=== PATIENT | female | born 1950 | race Caucasian/White ===

== ENCOUNTER 2019-10-12 08:54 | Outpatient (CLI) | payer MEDICARE, OTHER, SELFPAY ==
--- NOTE | ~2019-10-12 | CT_ITS ---
EXAMINATION: CT abdomen pelvis w con DATE: 10/12/2019 09:42 INDICATION: Right lower quadrant abdominal pain TECHNIQUE: Computed tomography (CT) of the abdomen and pelvis was performed with 100 cc Omnipaque 350 intravenous contrast. The dose-length product was 1589.71 mGy-cm. Automated exposure control and ite rative reconstruction technique were employed. COMPARISON: CT dated 03/25/2016 FINDINGS: Lung bases are unremarkable. No significant pleural or pericardial effusion. Heart size is normal. Fatty infiltration of the liver. Status post cholecystectomy. Calcified granulomas of the spleen. The pancreas, adrenal glands and kidneys are unremarkable. There is mild osteoarthritis of the hips. No acute osseous abnormality. Mild lumbar spondylosis with grade 1 spondylolisthesis at L4-5. Nonobstructive bowel gas pattern. No significant vascular abnormality. No lymphadenopathy. The append ix is likely surgically absent. No evidence for appendicitis or diverticulitis. IMPRESSION: 1. No acute abdominal abnormality. Reviewed, dictated and finalized at location A. ING TUBE SELECTOR
[2019-10-12 09:31] LABS: Blood Urea Nitrogen 11 mg/dL (8-26); Estimated Glomerular Filt Rate > 60
== END 2019-10-12 08:55 | disposition home or self-care (01) ==
LOC: ANHIMG 09:02
PROVIDERS: PCP Family Medicine; Visit Provider Family Medicine
DX: R10.31 Right lower quadrant pain (principal)
CPT/HCPCS: 74177; Q9967

== ENCOUNTER 2019-11-06 09:00 | Outpatient (CLI) | payer MEDICARE, OTHER, SELFPAY ==
--- NOTE | 2019-11-06 | EST_ITS ---
Patient Info Name: Roxanne Rice Age: 68 years : 1950 Gender: Female Ht: 64 in Wt: 300 lbs BSA: 2.56 m2 Exam Date: 11/06/2019 10:18 AM Exam Location: [facility] Stress Patient Status: Outpatient Admit Date: 11/06/2019 Staff Ordering Physician: Emerald Amaya MD Attending Provider: Emerald Amaya MD Exercise Technologist: Errol Gaytan RDCS, RT Exam Type: CA stress carlo w NM Study Info A regadenoson stress test was performed. Summary 1. Please correlate with nuclear medicine images, reported separately. 2. No abnormal ST-T wave changes with lexiscan. Protocol: Lexiscan Stress ECG Details Stage: REST Duration (min): 1 min : 1 sec HR (bpm): 59 SBP (mmHg): 141 DBP (mmHg): 65 Stage: REST Duration (min): 13 min : 11 sec HR (bpm): 62 SBP (mmHg): 141 DBP (mmHg): 65 Stage: STAGE 1 Duration (min): 0 min : 59 sec HR (bpm): 93 SBP (mmHg): 141 DBP (mmHg): 65 Stage: RECOVERY Duration (min): 1 min : 0 sec HR (bpm): 85 SBP (mmHg): 169 DBP (mmHg): 62 Stage: RECOVERY Duration (min): 2 min : 0 sec HR (bpm): 82 SBP (mmHg): 169 DBP (mmHg): 62 Stage: RECOVERY Duration (min): 3 min : 0 sec HR (bpm): 75 SBP (mmHg): 169 DBP (mmHg): 62 Stage: RECOVERY Duration (min): 4 min : 0 sec HR (bpm): 72 SBP (mmHg): 170 DBP (mmHg): 62 Stage: RECOVERY Duration (min): 5 min : 0 sec HR (bpm): 68 SBP (mmHg): 176 DBP (mmHg): 66 Stage: RECOVERY Duration (min): 5 min : 3 sec HR (bpm): 68 SBP (mmHg): 176 DBP (mmHg): 66 Rest HR: 62 bpm Peak HR: 93 bpm Rest Sys BP: 141 mmHg Peak Sys BP: 176 mmHg Max Pred HR: 154 bpm % Max Pred HR: 60 % Target HR: 131 bpm Max RPP: 16,368 bpm*mmHg Target HR Summary: Hemodynamic response to exercise was normal BP Response: Normal blood pressure response Termination Reason: Completed protocol Cardiac Symptoms: None Total Time: 1 min : 0 sec Rest Terrazas BP: 65 mmHg Peak Terrazas BP: 66 mmHg Total Dose: 0.4 mg Resting ECG Normal sinus rhythm. low voltage. first degree AV block. Stress ECG No abnormal ST/T wave changes with exercise. Arrhythmias None. Report Signatures
--- NOTE | ~2019-11-06 | NM_ITS ---
EXAMINATION: NM carlo stress w perfusion EXAM DATE: 11/06/2019 13:47 INDICATION: Unilateral primary osteoarthritis. Ischemic chest pain. TECHNIQUE: Rest images were obtained following intravenous administration of 9.1 mCi Tc99m tetrofosmi n (Myoview). The patient was infused intravenously with Lexiscan (regadenoson). Then, 27 mCi Tc99m te trofosmin (Myoview) was administered intravenously, and stress images were obtained. Data was reconst ructed into short axis and horizontal and vertical long axis SPECT images. Gated SPECT images were al so obtained. There is no prior study for comparison. FINDINGS: There is moderate sized, moderate severity anterolateral wall defect on the stress images w ith only small equivocal defect on the rest. Reversibility affecting approximately 39 % of the anteri or wall and 12% of the lateral wall. End diastolic volume: 124 mL. End-systolic volume: 27 mL. Left ventricular ejection fraction: 78%. IMPRESSION: 1. Moderate-sized moderate intensity anterolateral region of ischemia with equivocal tiny infarct wit hin. 2. Left ventricular ejection fraction measuring 78%. Reviewed, dictated and finalized at location A. IMPRESSION: 1. Moderate-sized moderate intensity anterolateral region of ischemia with equi vocal tiny infarct within. 2. Left ventricular ejection fraction measuring 78%.
== END 2019-11-06 09:01 | disposition home or self-care (01) ==
PROVIDERS: PCP Family Medicine; Visit Provider Family Medicine
DX: M17.11 Unilateral primary osteoarthritis, right knee (principal); R06.09 Other forms of dyspnea; R07.9 Chest pain, unspecified
CPT/HCPCS: 78452; 93017; A9502; J2785

== ENCOUNTER 2019-11-29 02:15 | Day surgery (SDC) | payer MEDICARE, OTHER, SELFPAY ==
[2019-11-29] VITALS (10 sets, daily range): BP systolic 108–146; BP diastolic 60–89; PULSE 46–61; RESP 13–18; TEMP 36.6; O2SAT 94–99; BMI 52.5
[2019-11-29 07:33] LABS: Basophils Percent Auto 0.6 % (0.2-1.2); Eosinophils Absolute Auto 0.1 K/mm3 (0-0.3); Eosinophils Percent Auto 1.7 % (0-4.4); Hematocrit 46.9 % (37.0-47.0); Immature Granulocyte Absolute 0.01 K/mm3 (0.00-0.031); Immature Granulocyte Percent A 0.2 % (0-0.5); Lymphocytes Absolute Auto 1.44 K/mm3 (0.9-3.2); Lymphocytes Percent Auto 30.2 % (18.3-44.2); Mean Corpuscular Volume 90.5 fl (80-100); Mean Platelet Volume 10.6 fl (7.4-10.4); Monocytes Absolute Auto 0.4 K/mm3 (0.1-0.6); Monocytes Percent Auto 9.2 % (2.6-8.5); Neutrophils Absolute Auto 2.8 K/mm3 (1.3-6.7); Neutrophils Percent Auto 58.1 % (45.5-73.1); Platelet Count Result 205 k/mm3 (150-375); Red Blood Count 5.18 M/mm3 (4.2-5.4); Red Cell Distribution Width 13.2 % (11.5-14.5); White Blood Count 4.8 K/mm3 (4.5-10.0)
--- NOTE | 2019-11-29 07:37 | SUR.PREOP ---
0700-pt presents to the [facility] for an LHC. No distress noted. AOx4. Questions answered and verbalized understanding. Consent signed. PIV started. Strong bilateral pedal pulses noted. Will continue to monitor.
[2019-11-29 07:43] LABS: Blood Urea Nitrogen 14 mg/dL (7-17); Calcium 9.2 mg/dL (8.4-10.2); Carbon Dioxide 31 mmol/L (22-30); Chloride 103 mmol/L (98-107); Estimated CRCL calculation 109 ml/min; Estimated Glomerular Filt Rate > 60; Glucose 136 mg/dL (65-105); Potassium 4.2 mmol/L (3.4-5.0); Sodium 141 mmol/L (137-145)
--- NOTE | 2019-11-29 08:22 | WPDMODSED ---
Moderate Sedation Note-Pt Data Patient Data Diagnosis: 68-year-old female with history of exertional dyspnea recently had a nuclear stress test to investigate these symptoms which apparently demonstrated evidence of anterior ischemia. There is no previous documented history of cardiac disease. The patient is morbidly obese with BMI of 52. Present Complaint: Exertional dyspnea Procedure to be performed/Plan: left heart catheterization Allergies Allergy/AdvReac Type Severity Reaction Status Date / Time Penicillins Allergy Unknown Skin Verified 11/28/19 15:30 Reaction Home Medications Medication Instructions Recorded Confirmed Type aspirin 325 mg PO DAILY 11/28/19 11/28/19 History clopidogrel 75 mg PO DAILY 11/28/19 11/28/19 History metoprolol tartrate 50 mg PO DAILY 11/28/19 11/28/19 History mirabegron [Myrbetriq] 50 mg PO DAILY 11/28/19 11/28/19 History nm-qh-VP-vit A-ouapy-lsy-coQ10 1 cap PO DAILY 11/28/19 11/28/19 History [Daily Multivitamin] olmesartan-hydrochlorothiazide 0.5 tablet PO DAILY 11/28/19 11/28/19 History rosuvastatin 10 mg PO DAILY 11/28/19 11/28/19 History vitamin E 400 unit PO DAILY 11/28/19 11/28/19 History Current Medications: Active Medications Sodium Chloride (Normal Saline Iv) 500 mls @ 100 mls/hr IV CONT .Q5H MARION Sedation/Anesthesia: No previous sedation/anesthesia problems (including family history). [facility] Social History Social History Smoking status: Never smoker Alcohol intake: never Gender identity (if verbalized by the patient): Female Mod Sed Physical Exam Physical Exam Pre Procedural Exam: Normal: Neck, Throat, Airway, Lungs, Heart Rate, Heart Rhythm, Neuro Exam and Extremities and Variation: Appearance ( obese white female no apparent distress) and Heart Size ( PMI not palpable) Hours since solid foods: 12 Hours since liquid intake: 12 Internal Medicine - PN: Obj Da Vital Signs Vital Signs: Vital Signs - 24 hr 11/29/19 07:20 Temperature 36.6 C Pulse Rate 61 Respiratory Rate 14 Blood Pressure 143/74 H Pulse Oximetry 96 Meds/Results Medications: Active Medications Generic Name Dose Route Start Last Admin Trade Name Freq PRN Reason Stop Dose Admin Sodium Chloride 500 mls @ 100 mls/hr 11/29/19 06:00 Normal Saline Iv IV CONT .Q5H MARION Labs CBC & Chem 7: 11/29/19 07:20 11/29/19 07:20 Labs: Laboratory Results - last 24 hr 11/29/19 11/29/19 07:20 07:20 WBC 4.8 RBC 5.18 Hgb 15.0 Hct 46.9 MCV 90.5 MCH 29.0 MCHC 32.0 RDW 13.2 Plt Count 205 MPV 10.6 H Immature Gran % (Auto) 0.2 Neut % (Auto) 58.1 Lymph % (Auto) 30.2 Meagher % (Auto) 9.2 H Eos % (Auto) 1.7 Baso % (Auto) 0.6 Lymph # (Auto) 1.44 Meagher # (Auto) 0.4 Eos # (Auto) 0.1 Baso # (Auto) 0.0 Abs Immat Gran (auto) 0.01 Absolute Neuts (auto) 2.8 Absolute Nucleated RBC 0.0 Nucleated RBC % 0.0 Sodium 141 Potassium 4.2 Chloride 103 Carbon Dioxide 31 H BUN 14 Creatinine 0.60 L Estim Creat Clear Calc 109 Estimated GFR > 60 Glucose 136 H Calcium 9.2 ASA Classification/Sedation ASA Classification/Sedation ASA Class: II Emergent: No Risks: Risks, benefits and alternatives explained and patient/family accepted plan for sedation. Patient re-evaluated immediately prior to sedation.
--- NOTE | 2019-11-29 09:06 | WPDCARDPROC ---
Cardiac Cath Procedure Note Date of procedure:: 11/29/19 Performing physician:: Leopoldo Mei MD Indication:: exertional dyspnea/abnormal nuclear stress test Brief clinical history:: this is a 68-year-old woman who has no previous history of coronary artery disease who has been experiencing more debilitating exertional shortness of breath. A nuclear stress test has been interpreted by Radiology as anterior wall ischemia prompting the recommendation to perform an angiogram. Procedure Procedure performed:: Left heart catheterization with left ventriculography and coronary angiography Angio-Seal to right femoral artery Sedation/Medication given:: fentanyl 50 mg Versed 2 mg case start time 8:40 a.m. case end time 9:04 a.m. sedation provided by Linn Rodriguez RN, trained observer Access site:: right femoral artery Estimated blood loss:: 30-40 cc Procedure note:: patient was brought to the cardiac catheterization lab where the right femoral triangle was prepared and draped in the usual fashion. Anesthesia was provided with 1% lidocaine infiltrated locally. Using the modified Seldinger technique a 5 Mauritian sheath placed into the femoral artery. The patient is morbidly obese in accessing the femoral artery was somewhat difficult. Following access left heart catheterization was carried out uneventfully. I 5 Mauritian angled pigtail catheter was used to measure left-sided hemodynamics and injected LV g in the are AO projection. Following this standard FL4 and JR4 catheters were used to inject the left and right coronaries in multiple projections. Following review the cineangiograms of femoral angiogram was done through the sheath and Angio-Seal device was deployed at the site of the arterial puncture with a good hemostatic result. Despite access challenges there was no palpable evidence of a groin hematoma at the conclusion of the procedure. Findings:: Hemodynamics: Central aortic pressure 135/56 left ventricle 135/70 end-diastolic 16 there is no gradient upon pullback across the aortic valve. The left ventricle is normal in size all segments contract properly the global ejection fraction is visually estimated to be 55% the left main coronary artery is short but is widely patent the LAD is a moderate caliber vessel extending down to the apex the LAD and its branches are smooth and angiographically normal. The circumflex is a moderate caliber artery giving rise to the marginal branches the circumflex system is smooth and angiographically normal the right coronary artery is medium in caliber dominant to the posterior circulation the RCA is smooth and angiographically normal Conclusion:: right coronary dominant circulation with no evidence of coronary artery disease preserved left ventricular systolic function successful Angio-Seal at right femoral artery puncture site symptoms of dyspnea obviously noncardiac and stress test is obviously a false positive based on these findings Leopoldo Mei MD FACC
--- NOTE | 2019-11-29 11:08 | PM.DS ---
DS: Summary Hospital Course Reason for hospitalization: Elective left heart catheterization Hospital Course: This is a 68-year-old patient with no previous documented history of coronary artery disease. She has been experiencing progressively more debilitating exertional shortness of breath. Because of this a nuclear stress test was performed as an outpatient which was interpreted by Radiology as evidence of anterior wall ischemia. For this reason she was seen in the office and angiography was planned for today. The patient underwent left heart catheterization via the right femoral artery approach. She had an uneventful procedure because of morbid obesity arterial access was a bit challenging. At the end of the procedure she did have an angiogram of the femoral artery and Angio-Seal device was deployed with a good hemostatic result. The left heart catheterization findings were essentially unremarkable she has right coronary dominant circulation and no evidence of CAD. Her LV function is nicely preserved. The stress test is clearly a false-positive result because of obesity. Time spent discussing smoking cessation with patient: 3 to 10 minutes Status at Discharge Functional status at discharge: independent ambulation Time Spent with Patient Time attestation: Total time spent providing and/or coordinating discharge services: Time spent: Less than 30 minutes Exam Const: General: comfortable and no acute distress HENMT: Mouth: Yes moist mucous membranes Eyes: Sclera: sclerae normal Pupils: Equal, round and reactive pupils present Neck: Neck: supple and no JVD Resp: Effort & Inspection: normal respiratory effort Auscultation: clear to auscultation bilaterally Cardio: Rate: regular rate Rhythm: regular rhythm Other: PMI not palpable because of size. no discernible murmur or gallop GI: GI Palp: Yes Soft to palpation Auscultation: normal bowel sounds Other: Morbidly obese otherwise benign Extrem: General: normal to inspection DS: Data Data Completed and Pending Labs on day of discharge: Labs from last 24 hours 11/29/19 11/29/19 07:20 07:20 WBC 4.8 RBC 5.18 Hgb 15.0 Hct 46.9 MCV 90.5 MCH 29.0 MCHC 32.0 RDW 13.2 Plt Count 205 MPV 10.6 H Immature Gran % (Auto) 0.2 Neut % (Auto) 58.1 Lymph % (Auto) 30.2 Griggs % (Auto) 9.2 H Eos % (Auto) 1.7 Baso % (Auto) 0.6 Lymph # (Auto) 1.44 Griggs # (Auto) 0.4 Eos # (Auto) 0.1 Baso # (Auto) 0.0 Abs Immat Gran (auto) 0.01 Absolute Neuts (auto) 2.8 Absolute Nucleated RBC 0.0 Nucleated RBC % 0.0 Sodium 141 Potassium 4.2 Chloride 103 Carbon Dioxide 31 H BUN 14 Creatinine 0.60 L Estim Creat Clear Calc 109 Estimated GFR > 60 Glucose 136 H Calcium 9.2 Discharge Plan Discharge Patient Disposition: Home, Self-Care Follow-up/Referrals: Leopoldo Mei MD [Physician] - Emerald Amaya MD [Primary Care Provider] - Discharge Medications: Continued aspirin 325 mg Tablet 325 mg PO DAILY RF: 0 metoprolol tartrate 50 mg tablet 50 mg PO DAILY RF: 0 vitamin E 400 unit Capsule 400 unit PO DAILY RF: 0 olmesartan-hydrochlorothiazide 20-12.5 mg tablet 0.5 tablet PO DAILY RF: 0 rosuvastatin 10 mg tablet 10 mg PO DAILY RF: 0 Myrbetriq 50 mg tablet extended release 24 hr 50 mg PO DAILY RF: 0 Daily Multivitamin 200-100-500 mcg Capsule 1 cap PO DAILY RF: 0 Discontinued clopidogrel 75 mg tablet 75 mg PO DAILY RF: 0 Primary Care Provider: Emerald Amaya Attending physician on admission: Leopoldo Mei
--- NOTE | 2019-11-29 17:08 | SUR.PHASEII ---
1430-pt given d/c orders and instructions. Questions answered and verbalized understanding. AOx4. PIV removed intact. Groin soft and non-tender, no evidence of bleeding or hematoma noted. Strong right pedal pulse noted. Taken via wheelchair to waiting vehicle. No distress noted or verbalized at time of departure.
== END 2019-11-29 14:30 | disposition home or self-care (01) ==
PROVIDERS: PCP Family Medicine; Visit Provider Specialist
PROC: 4A023N7 Measurement of Cardiac Sampling and Pressure, Left Heart, Percutaneous Approach (ICD-10-PCS; CPT 93452; principal; 2019-11-29 08:30)
DX: R94.39 Abnormal result of other cardiovascular function study (principal); R06.09 Other forms of dyspnea; Z79.82 Long term (current) use of aspirin; Z79.02 Long term (current) use of antithrombotics/antiplatelets; E66.01 Morbid (severe) obesity due to excess calories; Z68.43 Body mass index [BMI] 50.0-59.9, adult
CPT/HCPCS: 36415; 80048; 85025; 93458; C1760; C1887; C1894; G0269; J1644; J2250; J3010; J7040

== ENCOUNTER 2019-12-17 15:39 | Outpatient (CLI) | payer MEDICARE, OTHER, SELFPAY ==
--- NOTE | ~2019-12-17 | MM_ITS ---
EXAMINATION: MM screening [facility] BI w katerin HISTORY: Screening mammogram TECHNIQUE: Craniocaudal and mediolateral oblique 3-D tomosynthesis images were obtained and synthetic 2-D images were generated. CAD analysis was submitted and interpreted. COMPARISON: Comparison to multiple prior studies sequentially, with oldest reviewed study dated 07/22. BREAST PARENCHYMAL COMPOSITION: There are scattered areas of fibroglandular density. FINDINGS: There is no evidence of suspicious mass, calcification, or architectural distortion to sugg est malignancy in either breast. There has been no suspicious interval change. IMPRESSION: 1. No mammographic evidence of malignancy. 2. Recommend routine screening mammography in one year. BI-RADS Category 1: Negative Reviewed, dictated and finalized at location A.
== END 2019-12-17 15:40 | disposition home or self-care (01) ==
LOC: ANHIMG 15:42
PROVIDERS: PCP Family Medicine; Visit Provider Family Medicine
DX: Z12.31 Encounter for screening mammogram for malignant neoplasm of breast (principal)
CPT/HCPCS: 77063; 77067

== ENCOUNTER 2019-12-19 10:44 | Outpatient (CLI) | payer MEDICARE, OTHER, SELFPAY ==
[2019-12-19 11:09] LABS: Basophils Percent Auto 0.4 % (0.2-1.2); Eosinophils Absolute Auto 0.1 K/mm3 (0-0.3); Eosinophils Percent Auto 1.6 % (0-4.4); Hematocrit 43.8 % (37.0-47.0); Hemoglobin 14.6 g/dL (12.0-15.0); Lymphocytes Percent Auto 31.7 % (18.3-44.2); Mean Corpuscular HGB Conc 33.3 g/dl (32-36); Mean Corpuscular Hemoglobin 29.7 pg (26-34); Mean Corpuscular Volume 89.2 fl (80-100); Mean Platelet Volume 10.5 fl (7.4-10.4); Monocytes Absolute Auto 0.5 K/mm3 (0.1-0.6); Monocytes Percent Auto 9.1 % (2.6-8.5); Neutrophils Absolute Auto 2.9 K/mm3 (1.3-6.7); Neutrophils Percent Auto 57.2 % (45.5-73.1); Platelet Count Result 208 k/mm3 (150-375); Red Blood Count 4.91 M/mm3 (4.2-5.4); Red Cell Distribution Width 13.3 % (11.5-14.5)
[2019-12-19 11:22] LABS: Alanine Aminotransferase 38 U/L (4-35); Albumin Level 4.3 g/dL (3.5-5.1); Alkaline Phosphatase 71 U/L (38-126); Aspartate Amino Transferase 30 U/L (14-36); Bilirubin,Total 0.3 mg/dL (0.2-1.3); Blood Urea Nitrogen 12 mg/dL (7-17); Calcium 9.3 mg/dL (8.4-10.2); Carbon Dioxide 33 mmol/L (22-30); Chloride 101 mmol/L (98-107); Cholesterol 165 mg/dL (0-200); Estimated Glomerular Filt Rate > 60; Glucose 148 mg/dL (65-105); HDL Direct 35 mg/dL; Potassium 4.3 mmol/L (3.4-5.0); Sodium 139 mmol/L (137-145); Triglycerides 241 mg/dL (<150)
[2019-12-19 11:33] LABS: LDL Cholesterol Direct 95 mg/dL
[2019-12-19 11:53] LABS: Hemoglobin A1C 6.9 % (<5.7)
[2019-12-19 11:54] LABS: Free T4 Free Thyroxine 1.17 ng/mL (0.78-2.19)
== END 2019-12-19 10:45 | disposition home or self-care (01) ==
LOC: ANHLAB 10:47
PROVIDERS: PCP Family Medicine; Visit Provider Family Medicine
DX: R06.02 Shortness of breath (principal); R73.03 Prediabetes; I10 Essential (primary) hypertension; G47.33 Obstructive sleep apnea (adult) (pediatric); Z99.89 Dependence on other enabling machines and devices
CPT/HCPCS: 36415; 80053; 80061; 83036; 84439; 84443; 85025

== ENCOUNTER 2019-12-25 14:40 | Outpatient (CLI) | payer MEDICARE, OTHER, SELFPAY ==
--- NOTE | 2019-12-25 21:22 | WPDPFTINT ---
PFT Interpretation PFT Interpretation: DOS: 12/25/2019 REQUESTING: Dr Amaya REASON FOR TESTING: Dyspnea PULMONARY FUNCTION TESTS Spirometry: FEV1 78%, mildly decreased. FVC 74%, mildly decreased. FEV1% is normal. HKU35-97% mildly decreased. No bronchodilator was given. Lung volumes: TLC is 84%, normal. Slow vital capacity is 80%, normal, and higher than forced vital capacity indicating dynamic airflow obstruction. RV/TLC is increased suggestive of air trapping. Normal airway resistance 91%. Diffusion: DLCO 69%, mildly decreased. Flow volume loop: Normal. IMPRESSION: Mild obstructive ventilatory impairment with mild diffusion impairment. Clinical correlation is advised. Radha Seo MD
== END 2019-12-25 14:41 | disposition home or self-care (01) ==
PROVIDERS: PCP Family Medicine; Visit Provider Family Medicine
DX: R06.02 Shortness of breath (principal); R94.2 Abnormal results of pulmonary function studies
CPT/HCPCS: 94375; 94726; 94729

== ENCOUNTER 2020-09-09 07:06 | Outpatient (CLI) | payer MEDICARE, OTHER, SELFPAY ==
--- NOTE | ~2020-09-09 | XR_ITS ---
EXAMINATION: XR foot LT min 3V DATE: 09/09/2020 08:44 INDICATION: Left foot injury. TECHNIQUE: 4 views of left foot were obtained. COMPARISON: Left foot radiographs 09/18/2004 FINDINGS: There is a bunionette deformity of the fifth digit. No fracture. There is mild osteoarthrit is of first and second metacarpophalangeal joints and some of the interphalangeal joints and midfoot joints. There are enthesophytes at the posterior and plantar aspects of calcaneal tuberosity. IMPRESSION: 1. Bunionette. 2. Polyarticular osteoarthritis. Reviewed, dictated and finalized at location B. TENDER
[2020-09-09 07:37] LABS: Basophils Absolute Auto 0.1 K/mm3 (0.0-0.1); Eosinophils Absolute Auto 0.1 K/mm3 (0-0.3); Eosinophils Percent Auto 2.5 % (0-4.4); Hematocrit 38.2 % (37.0-47.0); Hemoglobin 12.2 g/dL (12.0-15.0); Immature Granulocyte Absolute 0.01 K/mm3 (0.00-0.031); Immature Granulocyte Percent A 0.2 % (0-0.5); Lymphocytes Absolute Auto 1.32 K/mm3 (0.9-3.2); Lymphocytes Percent Auto 27.6 % (18.3-44.2); Mean Corpuscular HGB Conc 31.9 g/dl (32-36); Mean Corpuscular Hemoglobin 28.2 pg (26-34); Mean Corpuscular Volume 88.2 fl (80-100); Mean Platelet Volume 9.9 fl (7.4-10.4); Monocytes Absolute Auto 0.5 K/mm3 (0.1-0.6); Monocytes Percent Auto 9.8 % (2.6-8.5); Neutrophils Absolute Auto 2.8 K/mm3 (1.3-6.7); Neutrophils Percent Auto 58.9 % (45.5-73.1); Platelet Count Result 225 k/mm3 (150-375); Red Blood Count 4.33 M/mm3 (4.2-5.4); Red Cell Distribution Width 14.3 % (11.5-14.5); White Blood Count 4.8 K/mm3 (4.5-10.0)
[2020-09-09 07:52] LABS: Alanine Aminotransferase 32 U/L (4-35); Albumin Level 3.9 g/dL (3.5-5.1); Alkaline Phosphatase 69 U/L (38-126); Anion Gap 6 mmol/L (8-16); Aspartate Amino Transferase 29 U/L (14-36); Bilirubin,Total 0.3 mg/dL (0.2-1.3); Blood Urea Nitrogen 13 mg/dL (7-17); Calcium 8.7 mg/dL (8.4-10.2); Carbon Dioxide 32 mmol/L (22-30); Chloride 103 mmol/L (98-107); Cholesterol 158 mg/dL (0-200); Estimated Glomerular Filt Rate > 60; Glucose 127 mg/dL (65-105); HDL Direct 38 mg/dL; Potassium 4.3 mmol/L (3.4-5.0); Sodium 141 mmol/L (137-145); Triglycerides 165 mg/dL (<150)
[2020-09-09 08:01] LABS: Creatinine Urine 163.9 mg/dL
[2020-09-09 08:02] LABS: Hemoglobin A1C 6.3 % (<5.7)
[2020-09-09 08:03] LABS: LDL Cholesterol Direct 94 mg/dL
[2020-09-09 08:06] LABS: MALB Creatinine Ratio 18.4 mg/g (0-30); Microalbumin Urine Random 30.1 mg/L (0-16.7)
[2020-09-09 08:34] LABS: Free T4 Free Thyroxine 1.18 ng/mL (0.78-2.19)
== END 2020-09-09 07:07 | disposition home or self-care (01) ==
PROVIDERS: Family Provider Family Medicine; PCP Family Medicine; Visit Provider Family Medicine
DX: M89.8X7 Other specified disorders of bone, ankle and foot (principal); E78.2 Mixed hyperlipidemia; E11.9 Type 2 diabetes mellitus without complications; E66.01 Morbid (severe) obesity due to excess calories; I10 Essential (primary) hypertension; Z79.899 Other long term (current) drug therapy; R60.9 Edema, unspecified; M19.072 Primary osteoarthritis, left ankle and foot; M21.622 Bunionette of left foot
CPT/HCPCS: 36415; 73630; 80053; 80061; 82043; 83036; 84439; 84443; 85025

== ENCOUNTER 2021-04-28 00:13 | Day surgery (SDC) | payer MEDICARE, OTHER, SELFPAY ==
[2021-04-16 15:05] VITALS: BMI 50.7
--- NOTE | 2021-04-28 09:27 | WPDGICN ---
Assessment and Plan Assessment and plan (1) History of colon polyps: Code(s): Z86.010 - Personal history of colonic polyps Status: Acute Assessment and Plan: Patient has: History of colon polyp in 2011. Most recent exam in 2016. Plan is for surveillance colonoscopy every 5 years. (2) Family history of colon cancer in father: Code(s): Z80.0 - Family history of malignant neoplasm of digestive organs Status: Acute Assessment and Plan: Patient's father and 2 paternal uncles have had colon cancer. Patient should have follow-up colonoscopy at least at 5 year intervals. (3) RLQ abdominal pain: Code(s): R10.31 - Right lower quadrant pain Status: Acute Assessment and Plan: Patient has had recent right lower quadrant abdominal pain suggestive of diverticulitis. It is improved with antibiotics. Colonoscopy will be performed to evaluate more thoroughly. High-fiber diet advised. GI Consult Note Consult date/time: 04/28/21 09:27 HPI: Roxanne Rice is a 70 year old female Presents for screening colonoscopy. Patient has a history of colon polyps in 2012. Most recent colonoscopy was in 2016. She reports that her father had colon cancer as well as 2 paternal uncles. At the present time patient occasionally notes right lower quadrant abdominal pain that is improved with antibiotics. There has been a question of possible diverticulitis. Patient denies any dysuria. She states her bowel habits are normal. She denies a blood in her stools. Review of Systems Review of Systems: All systems reviewed & are unremarkable except as noted in HPI and below PMFSH Past Medical History Medical History Prediabetes Surgical History Surgical History History of appendectomy History of cholecystectomy History of hysterectomy Family History Family History Mother Diabetes mellitus Hypertension Family history of cardiovascular disease Family history of coronary artery disease Father Family history of cardiovascular disease Family history of chronic obstructive pulmonary disease Carcinoma of colon, Onset Age: 80 Social History Social History Smoking status: Former smoker Tobacco type: cigarettes Alcohol intake: former Substance use: never Substance use type: does not use Living arrangements: with family Gender identity (if verbalized by the patient): Female Spiritual care concerns: No Meds Home Medications and Allergies Home Medications Medication Instructions Recorded Confirmed Type Daily Multivitamin 1 cap PO DAILY 11/28/19 04/16/21 History aspirin 81 mg PO DAILY 11/28/19 04/16/21 History vitamin E 400 unit PO DAILY 11/28/19 04/16/21 History metoprolol tartrate 50 mg tablet 50 mg PO DAILY #90 tablet 07/06/20 04/16/21 Rx blood sugar diagnostic #100 ea 09/08/20 04/16/21 Rx metformin 500 mg tablet,extended 1,000 mg PO DAILY #60 tablet 11/23/20 04/16/21 Rx release 24 hr rosuvastatin 10 mg tablet See Rx Instructions .ROUTE 03/01/21 04/16/21 Rx .COMPLEX #90 tablet olmesartan 20 See Rx Instructions .ROUTE 03/22/21 04/16/21 Rx mg-hydrochlorothiazide 12.5 mg .COMPLEX #45 tablet tablet mirabegron 50 mg tablet,extended See Rx Instructions .ROUTE 04/27/21 Rx release 24 hr .COMPLEX #90 tablet Allergies Allergy/AdvReac Type Severity Reaction Status Date / Time Penicillins Allergy Unknown Anaphylaxis Verified 04/16/21 15:03 Exam Narrative: Physical exam reveals Vital Signs be stable. HEENT exam is unremarkable. Patient is anicteric. Lungs are clear to auscultation and percussion. Heart is without murmur or extra sounds. Abdominal exam bowel sounds present soft nontender no organomegaly evident. Dig
[2021-04-28 09:33] LABS: Glucose Point of Care 111 mg/dl (65-105)
[2021-04-28 09:34] VITALS: BP 155/65; PULSE 70; RESP 18; TEMP 36.5; O2SAT 100; BMI 50.6
--- NOTE | 2021-04-28 09:34 | WPDANESEPPF ---
Anes - Initial Pre Proc Eval Procedure: Operation Date: 04/28/21 09:30 Proposed Procedures p Screening Colonoscopy - Zeke Doyle MD Date/Time: 04/28/21 09:34 Surgeon: Zeke Doyle MD Pre Op Diagnosis: family hx of colon ca, hx of colon polyps Patient Data Age: 70 Gender: F Height: 1.63 m Weight: 134.09 kg Allergies Allergy/AdvReac Type Severity Reaction Status Date / Time Penicillins Allergy Unknown Anaphylaxis Verified 04/28/21 09:33 Home Medications Medication Instructions Recorded Confirmed Type Daily Multivitamin 1 cap PO DAILY 11/28/19 04/16/21 History aspirin 81 mg PO DAILY 11/28/19 04/16/21 History vitamin E 400 unit PO DAILY 11/28/19 04/16/21 History metoprolol tartrate 50 mg tablet 50 mg PO DAILY #90 tablet 07/06/20 04/16/21 Rx blood sugar diagnostic #100 ea 09/08/20 04/16/21 Rx metformin 500 mg tablet,extended 1,000 mg PO DAILY #60 tablet 11/23/20 04/16/21 Rx release 24 hr rosuvastatin 10 mg tablet See Rx Instructions .ROUTE 03/01/21 04/16/21 Rx .COMPLEX #90 tablet olmesartan 20 See Rx Instructions .ROUTE 03/22/21 04/16/21 Rx mg-hydrochlorothiazide 12.5 mg .COMPLEX #45 tablet tablet mirabegron 50 mg tablet,extended See Rx Instructions .ROUTE 04/27/21 Rx release 24 hr .COMPLEX #90 tablet Laboratory Tests 04/28/21 09:29 POC Capillary Glucose 111 mg/dl H mg/dl (65-105) Patient hx anesthesia problems: none Family hx anesthesia problems: none PMFSH Past Medical History Medical History Prediabetes Surgical History Surgical History History of appendectomy History of cholecystectomy History of hysterectomy Family History Family History Mother Diabetes mellitus Hypertension Family history of cardiovascular disease Family history of coronary artery disease Father Family history of cardiovascular disease Family history of chronic obstructive pulmonary disease Carcinoma of colon, Onset Age: 80 Social History Social History Smoking status: Former smoker Tobacco type: cigarettes Alcohol intake: former Substance use: never Substance use type: does not use Living arrangements: with family Gender identity (if verbalized by the patient): Female Spiritual care concerns: No Anes - Eval Final PreProcedure Day of Procedure 04/28/21 09:34 Patient weight: morbidly obese Lungs: clear to auscultation Airway: Mallampati scale class II Neurological: alert and oriented Last oral intake: >/= 8 hours ASA classification: III Emergent: no Anesthetic plan: proceed Anesthesia type and monitoring: general GIVS and standard monitoring Informed Consent: The patient's anesthetic plan and its attendant risks and benefits were discussed with the patient/family/POA. Questions were solicited and answers provided to the satisfaction of the patient/family/POA.
[2021-04-28] MEDS: LACTATED RINGERS 1,000 ML 150 ML IV CONT (09:36)
[2021-04-28 10:23] VITALS: BP 119/68; PULSE 68; RESP 18; O2SAT 98
[2021-04-28 10:33] VITALS: BP 124/70; PULSE 70; RESP 20; O2SAT 99
[2021-04-28 10:43] VITALS: BP 156/36; PULSE 67; RESP 20; O2SAT 100
[2021-04-28 10:59] LABS: Basophils Percent Auto 0.5 % (0.2-1.2); Eosinophils Absolute Auto 0.1 K/mm3 (0-0.3); Eosinophils Percent Auto 1.4 % (0-4.4); Hematocrit 28.7 % (37.0-47.0); Immature Granulocyte Absolute 0.01 K/mm3 (0.00-0.031); Immature Granulocyte Percent A 0.2 % (0-0.5); Lymphocytes Absolute Auto 1.14 K/mm3 (0.9-3.2); Lymphocytes Percent Auto 26.6 % (18.3-44.2); Mean Corpuscular HGB Conc 27.9 g/dl (32-36); Mean Corpuscular Hemoglobin 18.6 pg (26-34); Mean Corpuscular Volume 66.6 fl (80-100); Mean Platelet Volume 8.9 fl (7.4-10.4); Monocytes Absolute Auto 0.4 K/mm3 (0.1-0.6); Neutrophils Absolute Auto 2.6 K/mm3 (1.3-6.7); Neutrophils Percent Auto 61.3 % (45.5-73.1); Platelet Count Result 295 k/mm3 (150-375); Red Blood Count 4.31 M/mm3 (4.2-5.4); Red Cell Distribution Width 19.3 % (11.5-14.5); White Blood Count 4.3 K/mm3 (4.5-10.0)
--- NOTE | 2021-04-28 11:08 | SUR.PHASEII ---
1100 BLOOD WORK PER ORDERS DRAWN IN PACU
[2021-04-28 11:16] LABS: Alanine Aminotransferase 22 U/L (4-35); Albumin Level 3.9 g/dL (3.5-5.1); Alkaline Phosphatase 77 U/L (38-126); Aspartate Amino Transferase 25 U/L (14-36); Bilirubin,Total 0.3 mg/dL (0.2-1.3)
[2021-04-28 12:04] LABS: Carcinoembryonic Antigen 5.3 ng/mL (0.0-3.0)
== END 2021-04-28 11:09 | disposition home or self-care (01) ==
PROVIDERS: PCP Family Medicine; Visit Provider Internal Medicine Gastroenterology
PROC: 0DJD8ZZ Inspection of Lower Intestinal Tract, Via Natural or Artificial Opening Endoscopic (ICD-10-PCS; CPT 45378; principal; 2021-04-28 09:30)
DX: Z12.11 Encounter for screening for malignant neoplasm of colon (principal); C18.2 Malignant neoplasm of ascending colon; Z86.010 Personal history of colon polyps; Z80.0 Family history of malignant neoplasm of digestive organs; R10.31 Right lower quadrant pain; R73.03 Prediabetes; Z87.891 Personal history of nicotine dependence; Z79.84 Long term (current) use of oral hypoglycemic drugs; Z79.82 Long term (current) use of aspirin; E66.01 Morbid (severe) obesity due to excess calories; Z68.43 Body mass index [BMI] 50.0-59.9, adult
CPT/HCPCS: 45380; 36415; 80076; 82378; 82948; 85025; 88305; J2704; J7120

== ENCOUNTER 2021-05-19 13:28 | Outpatient (CLI) | payer MEDICARE, OTHER, SELFPAY ==
--- NOTE | ~2021-05-19 | CT_ITS ---
EXAMINATION: CT abdomen pelvis w con DATE: 05/19/2021 13:53 INDICATION: Malignant neoplasm of colon TECHNIQUE: Computed tomography (CT) of the abdomen and pelvis was performed with 100 cc Omnipaque 350 intravenous contrast. Automated exposure control and iterative reconstruction technique were employe d. Exam dose: 1486.35 mGy-cm total exam DLP. COMPARISON: October 12, 2019 CT abdomen pelvis FINDINGS: The lung bases are clear of infiltrate or consolidation. Normal heart size. No pericardial or pleural effusion. Status post cholecystectomy. No hepatic space-occupying mass lesion. No pancreatic mass lesion or calcification. No significant ab normal dilatation of the bile ducts or pancreatic duct in this postcholecystectomy patient. Normal sp lenic size. Several calcified splenic granulomas are noted. Normal morphology of the adrenal glands. Small upper pole right renal probable cyst. No renal mass lesion or urinary tract calculus or hydrour eteronephrosis is noted otherwise. The urinary bladder is unremarkable. Status post hysterectomy. There is an apparent soft tissue mass of the ascending colon with minimal pericolic fat stranding. Th ere are multiple right lower quadrant lymph nodes, the largest measuring 10 x 16 mm, suggesting metas tatic involvement. Ascending colon adenocarcinoma with local spread is suspected. There is diverticulosis of the sigmoid colon. No CT evidence of diverticulitis. No bowel obstruction or intraperitoneal free air. Normal caliber and mild arthroscopic calcification of the abdominal aorta and iliac arteries. No intr aperitoneal or retroperitoneal or pelvic mass lesion or adenopathy or ascites is evident other than t he ascending colon mass and right lower quadrant probable metastatic adenopathy. Diffuse idiopathic skeletal hyperostosis of the thoracic spine. Very prominent hypertrophic degenerative change at the apophyseal joints of the lower lumbar and lumb osacral area with associated grade 1 anterolisthesis at L4-5. Moderate degenerative disc disease at L5-S1. IMPRESSION: Ascending colon soft tissue mass with mild adjacent fat stranding and up to 10 x 16 mm l ymphadenopathy, suggesting ascending colon adenocarcinoma with local direct spread Status post cholecystectomy Status post hysterectomy Diverticulosis of the colon; no CT evidence of diverticulitis Reviewed, dictated and finalized at [facility]. Reviewed, dictated and finalized at [facility]. IMPRESSION: Ascending colon soft tissue mass with mild adjacent fat stranding and up to 10 x 16 mm lymphadenopathy, suggesting ascending colon adenocarcinoma with local direct spread Status post cholecystectomy Status post hysterectomy Diverticulosis of the colon; no CT evidence of diverticulitis
[2021-05-19 13:51] LABS: Estimated Glomerular Filt Rate > 60
== END 2021-05-19 13:29 | disposition home or self-care (01) ==
PROVIDERS: PCP Family Medicine; Visit Provider Surgery
DX: C18.9 Malignant neoplasm of colon, unspecified (principal); K57.30 Diverticulosis of large intestine without perforation or abscess without bleeding; Z90.49 Acquired absence of other specified parts of digestive tract
CPT/HCPCS: 74177; Q9967

== ENCOUNTER 2021-05-27 09:40 | Outpatient (CLI) | payer MEDICARE, OTHER, SELFPAY ==
[2021-05-27 10:39] LABS: Hematocrit 37.7 % (37.0-47.0); Hemoglobin 10.6 g/dL (12.0-15.0)
[2021-05-27 10:50] LABS: Anion Gap 7 mmol/L (8-16); Blood Urea Nitrogen 12 mg/dL (7-17); Calcium 8.9 mg/dL (8.4-10.2); Carbon Dioxide 30 mmol/L (22-30); Chloride 103 mmol/L (98-107); Estimated Glomerular Filt Rate > 60; Glucose 144 mg/dL (65-110); Potassium 4.2 mmol/L (3.4-5.0); Sodium 140 mmol/L (137-145)
== END 2021-05-27 09:41 | disposition home or self-care (01) ==
LOC: ANHSURGERY 09:47
PROVIDERS: Anesthesiology; PCP Family Medicine; Visit Provider Surgery
DX: C18.9 Malignant neoplasm of colon, unspecified (principal); Z79.899 Other long term (current) drug therapy; D64.9 Anemia, unspecified; Z01.818 Encounter for other preprocedural examination
CPT/HCPCS: 36415; 80048; 85014; 85018; 86850; 86900; 86901

== ENCOUNTER 2021-06-04 12:29 | Inpatient (IN) | payer MEDICARE, OTHER, SELFPAY ==
[2021-05-27 10:00] VITALS: BP 132/60; PULSE 68; RESP 20; TEMP 36.6; O2SAT 99; BMI 51.7
[2021-06-04] VITALS (14 sets, daily range): BP systolic 117–137; BP diastolic 50–91; PULSE 56–100; RESP 15–20; TEMP 36.1–37.2; O2SAT 60–100; BMI 50.8
[2021-06-04 06:41] LABS: Glucose Point of Care 164 mg/dl (65-105)
[2021-06-04] MEDS: KETOROLAC 15 MG/ML VIAL (*BKC) IV PUSH (06:43)
[2021-06-04] MEDS: ACETAMINOPHEN 500 MG TABLET 1000 MG PO (06:43)
--- NOTE | 2021-06-04 06:48 | WPDANESEPPF ---
Anes - Initial Pre Proc Eval Procedure: Operation Date: 06/04/21 07:30 Proposed Procedures p Hand Assisted Laparoscopic Right Colectomy - Manolo Jackson MD Date/Time: 06/04/21 06:48 Surgeon: Manolo Jackson MD Pre Op Diagnosis: ascending colon CA Patient Data Age: 70 Gender: F Height: 1.63 m Weight: 134.5 kg Last Vital Signs Temp 36.6 C 05/27/21 10:00 Pulse 68 05/27/21 10:00 Resp 20 05/27/21 10:00 BP 132/60 05/27/21 10:00 Pulse Ox 99 05/27/21 10:00 Allergies Allergy/AdvReac Type Severity Reaction Status Date / Time Penicillins Allergy Unknown Anaphylaxis Verified 06/04/21 06:13 & HIVES Home Medications Medication Instructions Recorded Confirmed Type Daily Multivitamin 1 cap PO DAILY 11/28/19 06/04/21 History aspirin 81 mg PO DAILY 11/28/19 06/04/21 History vitamin E 400 unit PO QAM 11/28/19 06/04/21 History blood sugar diagnostic #100 ea 09/08/20 05/13/21 Rx olmesartan 20 See Rx Instructions .ROUTE 03/22/21 06/04/21 Rx mg-hydrochlorothiazide 12.5 mg .COMPLEX #45 tablet tablet ferrous sulfate 325 mg (65 mg 325 mg PO BID #60 tablet 05/13/21 06/04/21 Rx iron) tablet erythromycin 500 mg tablet 1 g PO .COMPLEX #6 tablet 05/27/21 Rx metformin 1,000 mg PO QAM 05/27/21 06/04/21 History metoprolol tartrate 50 mg PO QAM 05/27/21 06/04/21 History mirabegron [Myrbetriq] 50 mg QAM 05/27/21 06/04/21 History neomycin 500 mg tablet 1 g PO .COMPLEX #6 tablet 05/27/21 Rx rosuvastatin 10 mg QAM 05/27/21 06/04/21 History Laboratory Tests 06/04/21 06:40 POC Capillary Glucose 164 mg/dl H mg/dl (65-105) Patient hx anesthesia problems: none Family hx anesthesia problems: none Results Review: All pre-operative results and documents have been reviewed as part of the pre-operative evaluation. [facility] Past Medical History Medical History Adenocarcinoma, colon Mixed hyperlipidemia Obesity, morbid MIKE on CPAP Prediabetes Surgical History Surgical History History of appendectomy History of cholecystectomy History of hysterectomy Family History Family History Mother Diabetes mellitus Hypertension Family history of cardiovascular disease Family history of coronary artery disease Father Family history of cardiovascular disease Family history of chronic obstructive pulmonary disease Carcinoma of colon, Onset Age: 80 Unknown Diabetes mellitus Heart disease Cancer Social History Social History Smoking status: Never smoker Tobacco type: cigarettes Second hand tobacco smoke exposure: No Alcohol intake: current Substance use: never Substance use type: does not use Living arrangements: with family Gender identity (if verbalized by the patient): Female Spiritual care concerns: No Anes - Eval Final PreProcedure Day of Procedure 06/04/21 06:48 Patient weight: morbidly obese Heart: regular rate and rhythm Lungs: clear to auscultation Airway: Mallampati scale class II Neurological: alert and oriented Last oral intake: >/= 8 hours ASA classification: III Emergent: no Anesthetic plan: proceed Anesthesia type and monitoring: general ETT and standard monitoring Other findings: induction with propofol etomidate Results Review: All pre-operative results and documents have been reviewed as part of the pre-operative evaluation. Informed Consent: The patient's anesthetic plan and its attendant risks and benefits were discussed with the patient/family/POA. Questions were solicited and answers provided to the satisfaction of the patient/family/POA.
[2021-06-04] MEDS: ALVIMOPAN 12 MG CAPSULE PO (06:49)
[2021-06-04] MEDS: LACTATED RINGERS 1,000 ML 30 ML IV CONT ×2 (06:59→11:08)
--- NOTE | 2021-06-04 07:06 | WPDHPUPDATE1 ---
History and Physical Update Update Date/Time: 06/04/21 07:06 History and Physical has been reviewed, including an updated exam of the patient. There are NO changes in the patient's condition. Risks, benefits, and alternatives have been discussed and questions answered. Patient agrees to proceed with procedure.
[2021-06-04] MEDS: ceFAZolin 3 GM/D5W 100 ML 100 ML IVPB (07:30)
[2021-06-04] MEDS: metroNIDAZOLE 500 MG/ISO 100ML 500 MG/100 ML BAG 100 MG IVPB (07:47)
--- NOTE | 2021-06-04 11:16 | W.PM.PROC2 ---
Procedure Note - Detailed Date of Procedure 06/04/21 Pre-op Diagnosis ascending colon CA Post-op Diagnosis same Procedure Performed Hand access laparoscopic right colectomy with hand-sewn ileotransverse anastomosis Surgeon Manolo Jackson MD [facility] Anesthesia general and local Indications Patient noted on colonoscopy to have a mass in the ascending colon. Biopsies showed adenocarcinoma. She is taken to surgery now for laparoscopic right colectomy Findings There was some adenopathy associated with the tumor which had caused indentation of the wall of the bowel suggesting full-thickness bowel wall involvement. There was no attachment of the tumor to other organs. There was no evidence of liver or other distant metastases. Description of Procedure The patient was taken to surgery and induced into general anesthesia. The abdomen is prepped and draped. We started with the hand access port. This was planned in the upper abdominal midline. The proposed incision was marked on the skin. Local was infiltrated into the skin and the deeper subcutaneous tissues. Incision was made and dissection was carried down through the subcutaneous. Crossing veins were cauterized and divided. We infiltrated additional local into the midline fascia. The fascia was opened and extended the length of the wound. The peritoneum was opened as well. I hand was placed in the abdomen. There were no immediate adhesions that required attention. We placed the Joe wound guard and then the GelPort. With the hand in the abdomen, I placed a 5 mm port in the right lower quadrant. We insufflated through this and placed the camera. I then placed a left lower quadrant 5 mm port under direct visualization as well. There were a few omental adhesions to the anterior abdominal wall in the left lateral and lower quadrants. These were taken down without difficulty. We placed the patient in Trendelenburg with the right-side elevated. I elevated the distal ileum to expose the mesentery at the base of the distal ileum and the cecum. Despite using some laparotomy sponges, I had difficulty keeping the small bowel out of our field for this dissection. A 12 mm port was placed in the left lateral abdomen a bit higher than the other port in the left lower quadrant. Through this we passed the liver retractor. Using this and some laparotomy sponges, I was able to expose the base of the distal ileum and cecum. I then used the LigaSure and divided the peritoneum at the base of the distal ileum. This was completed across the area of the cecum as well. I was then able to gently dissect into the retroperitoneum and proceed with a medial to lateral mobilization of the ascending colon. I continued this dissection up above the duodenum and to the transverse mesocolon. I then exposed the distal ileum and divided the mesentery to the distal ileum about 8 in proximal to the ileocecal valve. The mesentery was divided with the LigaSure. I then used the LigaSure and dissected near the base of the mesentery over to the ileocolic artery. The ileocolic artery was exposed. It was also cauterized and divided using LigaSure near its origin. I continued the dissection of the ascending colon mesentery up to the hepatic flexure. I then went to the lateral peritoneal attachments of the ascending colon to divided these with the LigaSure thereby mobilizing the entire ascending colon. From here another 5 mm port was placed in the right mid abdomen so that the camera could be positioned a bit higher to expose the hepatic flexure. We then took down omental adhesions to the undersurface of the liver using the LigaSure. I found the transverse colon and the omentum. I exposed the transverse colon mesentery and divided it using LigaSure. The right branch of the middle colic artery was exposed and then divided using the LigaSure. We continued the dissection of the transverse colon mesentery a bit fu
[2021-06-04 11:28] LABS: Glucose Point of Care 157 mg/dl (65-105)
--- NOTE | 2021-06-04 12:30 | ADMGEN ---
This patient, Roxanne Rice, was admitted to Medical Room 248-. Patient/family oriented to hospital policies and general routines including ID bracelet, bed and alarms, visiting hours, pain management, procedures, bathroom and other care routines, personal items, smoking policy, room service/diet, and visiting hours. Information on how to activate the Rapid Response Team has been discussed. Patient/Family are encouraged to report perceived risks to care and to ask questions if they do not understand what they are told or what they should do.
[2021-06-04] MEDS: LACTATED RINGERS 1,000 ML 80 ML IV CONT (13:03)
[2021-06-04] MEDS: ONDANSETRON INJ 4 MG/2 ML VIAL IV PUSH (13:23)
--- NOTE | 2021-06-04 13:30 | WPDCN ---
Assessment and Plan Assessment and plan (1) Adenocarcinoma of colon: Code(s): C18.9 - Malignant neoplasm of colon, unspecified Status: Acute Assessment and Plan: Postoperative day 0, status post hand excess laparoscopic right colectomy with hand-sewn ileotransverse anastomosis. Wound care and pain control deferred to Dr. Jackson as well as DVT prophylaxis. Pathology pending. (2) Essential (primary) hypertension: Code(s): I10 - Essential (primary) hypertension Status: Acute Assessment and Plan: Blood pressures were reviewed and they have been stable postoperatively. Continue antihypertensives and monitor closely. (3) Obstructive sleep apnea on CPAP: Code(s): G47.33 - Obstructive sleep apnea (adult) (pediatric); Z99.89 - Dependence on other enabling machines and devices Status: Acute Assessment and Plan: CPAP will be provided for the patient to use while hospitalized. (4) Anemia: Code(s): D64.9 - Anemia, unspecified Status: Acute Assessment and Plan: Check hemoglobin and hematocrit in a.m. (5) Prediabetes: Code(s): R73.03 - Prediabetes Status: Chronic Assessment and Plan: Can resume metformin on discharge. Initiate sliding scale insulin, Accu-Cheks, and hypoglycemic protocol. (6) Mixed hyperlipidemia: Code(s): E78.2 - Mixed hyperlipidemia Status: Chronic Assessment and Plan: Resume receive a statin when tolerating p.o.. Check LFTs in a.m. Additional Plan Thank you for allowing us to participate in this patient's care. Please do not hesitate to contact us with any questions. Supervising physician for this medical consultation is Dr. Melecio Mcelroy. HPI Data of Consult Date/Time: 06/04/21 13:30 Requesting Physician: Manolo Jackson MD Primary Care Provider: Jericho Amaya MD Consult Narrative Narrative: This is a 70-year-old female with hypertension, dyslipidemia, sleep apnea, prediabetes, and recent diagnosis of adenocarcinoma of the ascending colon whom the hospitalist service has been consulted for management of her medical conditions status post right colectomy today per Dr. Jackson. About a month ago the patient was having some discomfort in her right lower quadrant for which she was treated with antibiotics for possible diverticulitis. A subsequent colonoscopy on 04/28/[address] Doyle unfortunately revealed an ascending colon mass which histologically showed moderate to poorly differentiated adenocarcinoma. She presented today for further management and is now status post hand excess laparoscopic right colectomy with hand-sewn ileotransverse anastomosis. Her surgery was performed under general and local anesthesia with no immediate complications documented and an estimated blood loss 50 mL. I am seeing the patient postoperatively in her room on the medical floor and she is in good spirits and really has minimal pain, only asking for Tylenol for some vague discomfort. She denies postoperative fever, chills, sweats, chest pain, shortness of breath, nausea, and vomiting. Review of Systems Review of Systems: Twelve systems were reviewed. No fever, chills, or sweats. No recent cold or flu symptoms. No chest pain or shortness of breath. Patient states compliance with her CPAP at home. She takes metformin for prediabetes and does not check her glucose at home. Except as documented, all other systems were reviewed and are negative. [facility] Past Medical History Medical History (Updated 06/04/21 @ 20:49 by Julia Shaw PA-C) Adenocarcinoma of colon Aortic stenosis Valve area 1.45 cm2 on echocardiogram in 04/2021. Mixed hyperlipidemia Obesity, morbid Obstructive sleep apnea on CPAP Overactive bladder Prediabetes Surgical History Surgical History (Updated 06/04/21 @ 20:42 by Julia Shaw
[2021-06-04] MEDS: HYDROcodone/acetaminophen (*CRX) 5-325 MG TABLET 1 TAB PO ×2 (16:29→20:40)
[2021-06-04 16:32] LABS: Glucose Point of Care 139 mg/dl (65-105)
[2021-06-04] MEDS: ENOXAPARIN 30 MG/0.3 ML SYRINGE SUB-Q (19:44)
[2021-06-04] MEDS: FAMOTIDINE 20 MG/2 ML VIAL IV PUSH (20:41)
[2021-06-04 21:00] LABS: Glucose Point of Care 153 mg/dl (65-105)
[2021-06-05] VITALS (7 sets, daily range): BP systolic 123–141; BP diastolic 50–56; PULSE 54–97; RESP 14–18; TEMP 35.9–37; O2SAT 64–100
[2021-06-05] MEDS: LACTATED RINGERS 1,000 ML 80 ML IV CONT (03:00)
[2021-06-05] MEDS: HYDROcodone/acetaminophen (*CRX) 5-325 MG TABLET 1 TAB PO ×3 (03:01→15:49)
[2021-06-05 05:35] LABS: Hematocrit 32.6 % (37.0-47.0); Hemoglobin 9.7 g/dL (12.0-15.0); Mean Corpuscular HGB Conc 29.8 g/dl (32-36); Mean Corpuscular Hemoglobin 23.2 pg (26-34); Mean Platelet Volume 10.2 fl (7.4-10.4); Platelet Count Result 251 k/mm3 (150-375); Red Blood Count 4.18 M/mm3 (4.2-5.4); White Blood Count 9.6 K/mm3 (4.5-10.0)
[2021-06-05 05:47] LABS: Alanine Aminotransferase 21 U/L (4-35); Albumin Level 3.8 g/dL (3.5-5.1); Alkaline Phosphatase 62 U/L (38-126); Anion Gap 8 mmol/L (8-16); Aspartate Amino Transferase 29 U/L (14-36); Bilirubin,Total 0.5 mg/dL (0.2-1.3); Blood Urea Nitrogen 9 mg/dL (7-17); Calcium 8.7 mg/dL (8.4-10.2); Carbon Dioxide 26 mmol/L (22-30); Chloride 103 mmol/L (98-107); Estimated CRCL calculation 91 ml/min; Estimated Glomerular Filt Rate > 60; Glucose 119 mg/dL (65-110); Potassium 3.7 mmol/L (3.4-5.0); Sodium 137 mmol/L (137-145)
[2021-06-05 05:51] LABS: Hemoglobin A1C 5.1 % (<5.7)
[2021-06-05 06:47] LABS: Glucose Point of Care 118 mg/dl (65-105)
[2021-06-05] MEDS: FERROUS SULFATE 324 MG TABLET PO ×2 (08:14→17:08)
[2021-06-05] MEDS: metFORMIN HCL XR 500 MG TAB.SR.24H 1000 MG PO (08:14)
[2021-06-05] MEDS: METOPROLOL TARTRATE 50 MG TAB PO (08:15)
[2021-06-05] MEDS: THERAPEUTIC MULTIVITAMINS/MINERALS TAB (*BKC) 1 TABLET PO (08:15)
[2021-06-05] MEDS: ASPIRIN 81 MG CHEWABLE TABLET PO (08:15)
[2021-06-05] MEDS: hydroCHLOROthiazide 6.25 MG TABLET PO (08:15)
[2021-06-05] MEDS: OLMESARTAN MEDOXOMIL 10 MG TABLET PO (08:15)
[2021-06-05] MEDS: ROSUVASTATIN 10 MG TABLET BY MOUTH (08:15)
[2021-06-05] MEDS: MIRABEGRON 50 MG ER TABLET BY MOUTH (08:15)
[2021-06-05] MEDS: FAMOTIDINE 20 MG/2 ML VIAL IV PUSH ×2 (08:16→20:28)
--- NOTE | 2021-06-05 09:26 | PM.PNGS ---
Progress Note: A&P Assessment and Plan (1) Adenocarcinoma of colon: Code(s): C18.9 - Malignant neoplasm of colon, unspecified Status: Acute Assessment and Plan: cont routine postop care, soft diet today, encourage OOB/IS Subjective Subjective Date/Time Seen: 06/05/21 09:26 doing well, no acute issues, freddie clears Review of Systems Review of Systems: All systems reviewed & are unremarkable except as noted in HPI and below Exam Const: General: cooperative, comfortable and no acute distress Nutritional Appearance: obese Orientation/consciousness: patient oriented x3 Resp: Effort & Inspection: normal respiratory effort Auscultation: clear to auscultation bilaterally Cardio: Rate: regular rate Rhythm: regular rhythm GI: Inspection: normal to inspection, distended and incision GI Palp: Yes Soft to palpation and Yes Tenderness to palpation present (GI) Objective Data Vital Signs Vital Signs: Vital Signs - 24 hr 06/04/21 11:08 06/04/21 11:23 06/04/21 11:40 Temperature 37.2 C Pulse Rate 82 78 74 Respiratory Rate 18 20 15 Blood Pressure 137/71 132/72 132/66 Pulse Oximetry 99 100 95 06/04/21 12:00 06/04/21 12:20 06/04/21 12:30 Temperature 36.2 C L Pulse Rate 61 65 62 Respiratory Rate 15 15 18 Blood Pressure 130/61 128/65 118/57 L Pulse Oximetry 93 93 97 06/04/21 12:45 06/04/21 13:15 06/04/21 14:15 Temperature 36.1 C L 36.6 C 36.4 C L Pulse Rate 58 L 66 56 L Respiratory Rate 16 18 18 Blood Pressure 128/56 L 125/54 L 117/57 L Pulse Oximetry 100 93 94 06/04/21 18:00 06/04/21 20:41 06/04/21 21:52 Temperature 36.4 C L Pulse Rate 60 60 97 Respiratory Rate 18 18 Blood Pressure 136/91 H Pulse Oximetry 97 97 60 L 06/04/21 22:15 06/05/21 02:24 06/05/21 05:35 Temperature 36.9 C 37.0 C Pulse Rate 100 97 80 Respiratory Rate 18 14 Blood Pressure 122/50 L 136/50 L Pulse Oximetry 95 64 L 100 Intake/Output Intake/Output: Intake & Output 06/02/21 06/03/21 06/04/21 06/05/21 23:59 23:59 23:59 23:59 Intake Total 840 1500 Output Total 100 1000 Balance 740 500 Meds/Results Medications: Active Medications Generic Name Dose Route Start Last Admin Trade Name Freq PRN Reason Stop Dose Admin Acetaminophen 500 mg 06/04/21 12:29 Acetaminophen 500 Mg Tablet PO Q6H PRN Mild Pain (1-3) or Fever Hydrocodone Bitart/Acetaminophen 1 tab 06/04/21 12:29 06/05/21 08:29 Hydrocodone/Acetaminophen (*Crx) 5-325 Mg Tablet PO 1 tab Q4H PRN Administration Pain Rated 4-6 Hydrocodone Bitart/Acetaminophen 1 tab 06/04/21 12:29 Hydrocodone/Acetaminophen (*Crx) 10-325 Mg Tablet PO Q4H PRN Pain Rated 7-10 Alvimopan 12 mg 06/05/21 21:00 Alvimopan 12 Mg Capsule PO 06/12/21 20:59 Q12HR MARION Aspirin 81 mg 06/05/21 09:00 06/05/21 08:15 Aspirin 81 Mg Chewable Tablet PO 81 mg DAILY MARION Administration Dextrose 12.5 gm 06/04/21 12:29 Dextrose 50% 25 Gm/50 Ml Syringe IV PUSH PRN PRN Hypoglycemia Protocol Enoxaparin Sodium 40 mg 06/05/21 09:00 Enoxaparin 40 Mg/0.4 Ml Syringe SUB-Q DAILY MARION Famotidine 20 mg 06/04/21 21:00 06/05/21 08:16 Famotidine 20 Mg/2 Ml Vial IV PUSH 20 mg Q12HR MARION Administration Ferrous Sulfate 324 mg 06/04/21 17:00 06/05/21 08:14 Ferrous Sulfate 324 Mg Tablet PO 324 mg BID MARION Administration Glucagon 1 mg 06/04/21 12:29 Glucagon For Inj 1 Mg Vial IM PRN PRN Hypoglycemia Protocol Glucose 15 gm 06/04/21 12:29 Glucose Oral Gel 15 Gm Of Glucse In 37.5 Gm Tube PO PRN PRN Hypoglycemia Protocol Hydrochlorothiazide 6.25 mg 06/05/21 09:00 06/05/21 08:15 Hydrochlorothiazide 6.25 Mg Tablet PO 6.25 mg QAM MARION Administration Lactated Ringer's 1,000 mls @ 80 mls/hr 06/04/21 12:29 06/05/21 03:00 Lr - Lactated Ringers Iv IV CONT 80 mls/hr .[id number] MARION Administration Dextrose 1,000 mls @
--- NOTE | 2021-06-05 11:10 | PM.IMPN ---
Progress Note: A&P Assessment and Plan (1) Adenocarcinoma of colon: Code(s): C18.9 - Malignant neoplasm of colon, unspecified Status: Acute Assessment and Plan: Postoperative day s/p laparoscopic right colectomy with hand-sewn ileotransverse anastomosis. -Wound care , DVT prophylaxis, and pain control deferred to surgery - pathology pending - continue Lovenox (2) Essential (primary) hypertension: Code(s): I10 - Essential (primary) hypertension Status: Acute Assessment and Plan: Last blood pressure 123/54 - continue metoprolol, olmesartan, and hydrochlorothiazide (3) Obstructive sleep apnea on CPAP: Code(s): G47.33 - Obstructive sleep apnea (adult) (pediatric); Z99.89 - Dependence on other enabling machines and devices Status: Acute Assessment and Plan: continue CPAP (4) Anemia: Code(s): D64.9 - Anemia, unspecified Status: Acute Assessment and Plan: stable, likely due to colon cancer - continue ferrous sulfate (5) Prediabetes: Code(s): R73.03 - Prediabetes Status: Chronic Assessment and Plan: last glucose 118 - continue sliding scale insulin and Accu-Cheks (6) Mixed hyperlipidemia: Code(s): E78.2 - Mixed hyperlipidemia Status: Chronic Assessment and Plan: chronic Additional Plan there were reports of hypoxia noted by respiratory in the EMR overnight. I spoke with the daytime nurse who was not notified about this and the nighttime nurse had no reports of hypoxia. I asked the patient if she felt short of breath or if she was told she was hypoxic and she said no. I suspect that her heart rate and O2 saturation may have been mixed up in the EMR. Will monitor for hypoxia throughout her stay today. No signs of DVT or PE Time Spent With Patient Time with patient: 25 - 35 minutes Subjective Date/time seen: 06/05/21 11:10 Interval history: Pt is a 70-year-old female here for colon cancer resection. Patient was seen today and has no complaints other than some abdominal pain at the incision site. She said she has been eating clear liquids and doing well. She has not really had any gas and no bowel movements but has no nausea or vomiting. She states that she wears a CPAP at home. She reports that she did not feel short of breath overnight and I spoke with the nurse who does not think she was hypoxic either. There was no report of hypoxia by the night nurse. overall, the patient is doing well. No chest pain. Review of Systems Review of Systems: All systems reviewed & are unremarkable except as noted in HPI and below Exam Narrative: General: Well developed well nourished patient in NAD HEENT: normocephalic Neck: supple Neuro: Alert and oriented x4 CV:RRR Resp:CTA Abd: Soft, non distended. incision site clean and dry with no erythema, dehiscence, or discharge. Positive bowel sounds Extremities: No swelling, erythema, or pain to palpation. Objective Data Vital Signs Vital Signs: Vital Signs - 24 hr 06/04/21 11:23 06/04/21 11:40 06/04/21 12:00 Temperature Pulse Rate 78 74 61 Respiratory Rate 20 15 15 Blood Pressure 132/72 132/66 130/61 Pulse Oximetry 100 95 93 06/04/21 12:20 06/04/21 12:30 06/04/21 12:45 Temperature 97.2 F L 97.0 F L Pulse Rate 65 62 58 L Respiratory Rate 15 18 16 Blood Pressure 128/65 118/57 L 128/56 L Pulse Oximetry 93 97 100 06/04/21 13:15 06/04/21 14:15 06/04/21 18:00 Temperature 97.8 F 97.5 F L 97.5 F L Pulse Rate 66 56 L 60 Respiratory Rate 18 18 18 Blood Pressure 125/54 L 117/57 L 136/91 H Pulse Oximetry 93 94 97 06/04/21 20:41 06/04/21 21:52 06/04/21 22:15 Temperature 98.5 F Pulse Rate 60 97 100 Respiratory Rate 18 18 Blood Pressure 122/50 L Pulse Oximetry 97 60 L 95 06/05/21 02:24 06/05/21 05:35 06/05/21 10:00 Temperature 98.6 F 96.8 F L Pulse Rate 97 80 56 L Respirator
[2021-06-05] MEDS: ENOXAPARIN 40 MG/0.4 ML SYRINGE SUB-Q (11:13)
[2021-06-05 11:32] LABS: Glucose Point of Care 111 mg/dl (65-105)
[2021-06-05 17:01] LABS: Glucose Point of Care 119 mg/dl (65-105)
[2021-06-05] MEDS: ALVIMOPAN 12 MG CAPSULE PO (20:28)
[2021-06-05] MEDS: HYDROcodone/acetaminophen (*CRX) 10-325 MG TABLET 1 TAB PO (20:28)
[2021-06-05 20:53] LABS: Glucose Point of Care 108 mg/dl (65-105)
[2021-06-06 01:16] VITALS: BP 161/58; PULSE 73; RESP 14; TEMP 36.4; O2SAT 98
[2021-06-06] MEDS: HYDROcodone/acetaminophen (*CRX) 10-325 MG TABLET 1 TAB PO ×2 (05:21→09:57)
[2021-06-06 05:34] LABS: Hematocrit 33.1 % (37.0-47.0); Hemoglobin 9.6 g/dL (12.0-15.0); Mean Corpuscular Hemoglobin 23.6 pg (26-34); Mean Corpuscular Volume 81.5 fl (80-100); Mean Platelet Volume 10.1 fl (7.4-10.4); Platelet Count Result 213 k/mm3 (150-375); Red Blood Count 4.06 M/mm3 (4.2-5.4); White Blood Count 7.8 K/mm3 (4.5-10.0)
[2021-06-06 05:51] LABS: Anion Gap 9 mmol/L (8-16); Blood Urea Nitrogen 12 mg/dL (7-17); Calcium 8.3 mg/dL (8.4-10.2); Carbon Dioxide 29 mmol/L (22-30); Chloride 102 mmol/L (98-107); Estimated CRCL calculation 104 ml/min; Estimated Glomerular Filt Rate > 60; Glucose 95 mg/dL (65-110); Potassium 3.5 mmol/L (3.4-5.0); Sodium 140 mmol/L (137-145)
[2021-06-06 06:37] VITALS: BP 120/58; PULSE 62; RESP 18; TEMP 36.6; O2SAT 96
[2021-06-06 06:49] LABS: Glucose Point of Care 102 mg/dl (65-105)
--- NOTE | 2021-06-06 08:00 | PM.DS ---
DS: Admitting Diagnosis Discharge Date 06/06/2021 Admitting Diagnosis right colonic adenocarcinoma DS: Discharge Diagnosis Discharge Diagnosis (1) Adenocarcinoma of colon: Code(s): C18.9 - Malignant neoplasm of colon, unspecified Status: Acute Assessment and Plan: s/p R colectomy, doing well, routine postop instructions, freddie diet and having bowel fxn, home c po analgesia, f/u 2 wks DS: Summary Hospital Course Reason for hospitalization: Right colon cancer Hospital Course: 70 y/o F presenting c R colon cancer. Pt underwent lap R colon by Dr. Jackson on 06/04, please see full op report for details. Postop, pt did well and transferred to floor. On POD 1, pt had delgado removed and diet was slowly advanced. Pt had sm BM overnight of POD 1/2. Pt was up and ambulating s difficulty. Pt will now be dc'd home c po analgesia and f/u c Dr. Jackson in 2 wks. Status at Discharge Functional status at discharge: independent ambulation Overall status at discharge: patient is progressing back to baseline Time Spent with Patient Time attestation: Total time spent providing and/or coordinating discharge services: Time spent: Less than 30 minutes Exam Const: General: cooperative, comfortable, no acute distress, alert, awake and Physically active Nutritional Appearance: obese Orientation/consciousness: patient oriented x3 Limitations: no limitations Resp: Effort & Inspection: normal respiratory effort Auscultation: clear to auscultation bilaterally Cardio: Rate: regular rate Rhythm: regular rhythm GI: Inspection: normal to inspection, distended and incision GI Palp: Yes abdominal tenderness, Yes Soft to palpation, Yes Tenderness to palpation present (GI), No Guarding due to palpation present (GI), No Rigid due to palpation and No Hernia present DS: Data Data Completed and Pending Pending studies at discharge: Pending at discharge 06/04/21 09:33 Surgical [PTH] Routine Labs on day of discharge: Labs from last 24 hours 06/06/21 06/06/21 06/06/21 06:45 04:58 04:58 WBC 7.8 RBC 4.06 L Hgb 9.6 L Hct 33.1 L MCV 81.5 MCH 23.6 L MCHC 29.0 L RDW TNP Plt Count 213 MPV 10.1 % Immature Plt Fraction 4.0 Sodium 140 Potassium 3.5 Chloride 102 Carbon Dioxide 29 Anion Gap 9 BUN 12 Creatinine 0.60 L Estim Creat Clear Calc 104 Estimated GFR > 60 Glucose 95 POC Capillary Glucose 102 Calcium 8.3 L 06/05/21 06/05/21 06/05/21 20:26 16:58 11:27 WBC RBC Hgb Hct MCV MCH MCHC RDW Plt Count MPV % Immature Plt Fraction Sodium Potassium Chloride Carbon Dioxide Anion Gap BUN Creatinine Estim Creat Clear Calc Estimated GFR Glucose POC Capillary Glucose 108 H 119 H 111 H Calcium Discharge Plan Discharge Attending physician on discharge: Manolo Jackson Consulting providers: Diogenes Mcelroy ; No Handley Discharging Clinician: Jeanette Suh Anticipated Discharge Date/Time: 06/06/21 07:46 Patient Disposition: Home, Self-Care Activity: may shower and no straining Diet: as tolerated Wound Care Instructions: incision open to air Patient Instructions: Antibiotic Form Stand Alone Forms: General Discharge Information Follow-up/Referrals: Manolo Jackson MD [Physician] - 2 Weeks Discharge Medications: New hydrocodone-acetaminophen 5-325 mg tablet 1 tablet PO Q6H PRN (Reason: pain) Qty: 30 RF: 0 docusate sodium [Colace] 100 mg capsule 100 mg PO BID Qty: 30 RF: 0 Continued (DME) blood sugar diagnostic Strip See Rx Instructions .ROUTE .MEDSUPPLY Qty: 100 RF: 3 ferrous sulfate [Iron (ferrous sulfate)] 325 mg (65 mg iron) tablet 325 mg PO BID Qty: 60 RF: 0 metoprolol tartrate 50 mg tablet 50 mg PO QAM RF: 0 metformin 500 mg tablet extended release 24 hr 1,000 mg PO QAM RF: 0 rosuvastatin
[2021-06-06] MEDS: FAMOTIDINE 20 MG/2 ML VIAL IV PUSH (09:18)
[2021-06-06] MEDS: ROSUVASTATIN 10 MG TABLET BY MOUTH (09:18)
[2021-06-06] MEDS: THERAPEUTIC MULTIVITAMINS/MINERALS TAB (*BKC) 1 TABLET PO (09:18)
[2021-06-06] MEDS: ASPIRIN 81 MG CHEWABLE TABLET PO (09:18)
[2021-06-06] MEDS: OLMESARTAN MEDOXOMIL 10 MG TABLET PO (09:18)
[2021-06-06] MEDS: FERROUS SULFATE 324 MG TABLET PO (09:18)
[2021-06-06] MEDS: hydroCHLOROthiazide 6.25 MG TABLET PO (09:19)
[2021-06-06 09:20] VITALS: PULSE 65
[2021-06-06] MEDS: metFORMIN HCL XR 500 MG TAB.SR.24H 1000 MG PO (09:20)
[2021-06-06] MEDS: METOPROLOL TARTRATE 50 MG TAB PO (09:20)
[2021-06-06 09:21] VITALS: RESP 18; O2SAT 96
[2021-06-06] MEDS: MIRABEGRON 50 MG ER TABLET BY MOUTH (09:21)
[2021-06-06] MEDS: ALVIMOPAN 12 MG CAPSULE PO (09:21)
[2021-06-06] MEDS: ENOXAPARIN 40 MG/0.4 ML SYRINGE SUB-Q (09:21)
--- NOTE | 2021-06-06 11:20 | PM.EVENT ---
Event Note Event Note Event Note: pt was discharged prior to the hospitalist seeing her.
== END 2021-06-06 10:30 | disposition home or self-care (01) | DRG 330 ==
LOC: ANH2MED 12:46
PROVIDERS: Physician Assistant; Admitting Provider Surgery; PCP Family Medicine; Visit Provider Physician Assistant
PROC: 0DTF4ZZ Resection of Right Large Intestine, Percutaneous Endoscopic Approach (ICD-10-PCS; CPT 44204; principal; 2021-06-04 07:30)
DX: C18.2 Malignant neoplasm of ascending colon (principal); Z68.43 Body mass index [BMI] 50.0-59.9, adult; E78.2 Mixed hyperlipidemia; E66.01 Morbid (severe) obesity due to excess calories; G47.33 Obstructive sleep apnea (adult) (pediatric); N32.81 Overactive bladder; I35.0 Nonrheumatic aortic (valve) stenosis; R73.03 Prediabetes; Z90.49 Acquired absence of other specified parts of digestive tract; Z90.710 Acquired absence of both cervix and uterus; Z79.82 Long term (current) use of aspirin
CPT/HCPCS: 36415; 80048; 80076; 82948; 83036; 83735; 85027; 85055; 88309; A9270; J0690; J1100; J1170; J1650; J1885; J2250; J2405; J2704; J2710; J3010; J7120

== ENCOUNTER 2022-08-08 07:15 | Outpatient (RCR) | payer SELFPAY ==
[2022-05-10 12:05] VITALS: PULSE 75
== END 2022-08-11 12:50 | disposition home or self-care (01) ==
LOC: ANHCPREHAB 07:15
PROVIDERS: PCP Family Medicine; Visit Provider Internal Medicine Cardiovascular Disease
DX: I50.9 Heart failure, unspecified (principal)
CPT/HCPCS: 99199

== ENCOUNTER 2023-02-27 09:12 | Outpatient (CLI) | payer MEDICARE, OTHER, SELFPAY ==
--- NOTE | ~2023-02-27 | US_ITS ---
EXAMINATION: US art doppler w press LE BI DATE: 02/27/2023 10:16 INDICATION: Atherosclerosis of [place] arteries of the extremities. TECHNIQUE: Segmental pressures and plethysmographic and Doppler waveforms of the brachial and lower e xtremity arteries were obtained. COMPARISON: None. FINDINGS: Right and left brachial artery pressures of 107 mm Hg and 98 mm Hg, respectively, are concordant (nor mal difference <= 30 mmHg). The right and left high-thigh pressure indices are unable to be obtained due to inability to occlude the vessels at either thigh. The right ankle-brachial index (ML) is 1.22 (normal >= 0.9-1). The right great toe-brachial index (T BI) is 0.65 (normal >= 0.6-0.8). The right lower extremity segmental pressure gradients are increased between the right [id number] popliteal artery and the arteries at the right ankle (normal gradie nts <= 20-30 mmHg between adjacent levels on the same leg or the same levels on the two legs). Arteri al waveforms are biphasic with brisk systolic upstrokes throughout the arteries of the right lower li mb. The left ML is 1.21. The left TBI is 0.71. The left lower extremity segmental pressure gradients are increased between the left [id number] popliteal artery and the arteries at the left ankle. Arter ial waveforms are triphasic at the left common femoral artery and biphasic in the more distal arterie s with brisk systolic upstrokes throughout. IMPRESSION: 1. No significant arterial occlusive disease with normal bilateral ABIs and low normal TBIs. Reviewed, dictated and finalized at location A.
== END 2023-02-27 09:13 | disposition home or self-care (01) ==
PROVIDERS: PCP Family Medicine; Visit Provider Internal Medicine Cardiovascular Disease
DX: I70.213 Atherosclerosis of native arteries of extremities with intermittent claudication, bilateral legs (principal)
CPT/HCPCS: 93923